=== PATIENT | female | born 1985 | race Hispanic/Latino ===

== ENCOUNTER 2018-06-30 10:25 | Emergency (ER) | payer OTHER ==
[2018-06-30 11:23] VITALS: BMI 33.3
[2018-06-30 11:40] LABS: SQUAMOUS EPITHIAL 17 /hpf (0-5); URINE BILIRUBIN NEGATIVE (NEGATIVE); URINE BLOOD NEGATIVE (NEGATIVE); URINE CLARITY CLOUDY (Clear); URINE COLOR YELLOW (YELLOW); URINE GLUCOSE (UA) NEG (NEGATIVE); URINE LEUKOCYTE ESTERASE NEG Leu/uL (Negative); URINE PROTEIN NEGATIVE (NEGATIVE); URINE UROBILINOGEN 0.2-1.0 mg/dL (0.2-1.0)
[2018-06-30 17:59] VITALS: BP 125/77; PULSE 75; RESP 18; TEMP 98.2; O2SAT 97
--- NOTE | 2018-07-01 08:16 | OBHP ---
Datetime: 06/30/2018 11:23 IP Adm Impression: , intrauterine IP Admit Plan: Observation/Evaluation Admit Comment, IP Provider: 32 YO with IUP at EGA 28.5 Wks by first trimester US EDC , who presents to [facility] with c/o middle back pain. Patient explains she has middle back pain that st arted several days ago, but since yesterday is more intense /, located more to the left side of t he back, feels like muscle soreness and sometimes like an "snap" on her back when she moves, cough or take deep breaths, patient states that the pain is preventing her from functioning in her daily acti vities at work and home, states nothing make it better and a heating pad and Tylenol did not relief t he pain. Patient also reports she just finished yesterday amoxicillin Rx x7d for bronchitis, she has been with cold like symptoms for x1MO, with a dry cough that now in the past week became productive o f a greenish sputum, she reports feeling better of her bronchitis, but reports difficulty taking deep breaths due to pain. Patient denies VB, CONTX, LOF, BROUSSARD, fever, chills, N/V/D, dysuria. Patient repor ts +FM. ROS: Unremarkable, except as per HPI. provider: Dr Luz COATS: x 2 previous full term , LEEP Sx in 2012, denies STI, reports normal current . PMH: Denies FMH: Denies SOCHx: Denies Tob/drugs/ ETOH SURG: Cholecystectomy ALL: NKA MEDS; Vit PE GEN: NAD HEENT: NCAT RESP: Decreased breath sound to left side, no wheezing, no rhonchi CV: RRR, S1 S2 present normal BACK: No R CVA tenderness, Left no done due to tenderness to palpation of left middle-upper back, tenderness located toward lower back rib cage. EXT: No edema A/P 32 YO with IUP at EGA 28.5 Wks by first trimester US EDC , with c/o upper-middle back pain that increases suddenly mostly with coughing and deep breathing, with recent h/o bronchitis , tender to palpation of back side of left rib cage. Negative for chills, fever, and dysuria. Impression: Pleuritic pain secondary to cough of recent bronchitis Will also rule out UTI in Plan -Maternal VS monitoring -FHR monitoring -UA -D/C planning Case discussed with attending Dr Luz Sandy MD PGY1 Comments, ACOG Physical Exam: see triage comments EGA AdmitDate IP: 28.5 Vital Signs Provider: Reviewed; Within Normal Limits (Annotations: Data stored by CPN on behalf of user) IP Chief Complaint: Illness
== END 2018-06-30 12:50 | disposition home or self-care (01) ==
LOC: H.EROB2 10:25
DX: O26.93 Pregnancy related conditions, unspecified, third trimester (principal); M54.6 Pain in thoracic spine; Z3A.28 28 weeks gestation of pregnancy; O09.93 Supervision of high risk pregnancy, unspecified, third trimester

== ENCOUNTER 2018-09-18 16:01 | Inpatient (IN) | payer OTHER ==
[2018-09-18 17:16] VITALS: BMI 34.7
[2018-09-18] MEDS ORDERED: Lactated Ringer's 1,000 ML IV ONE (17:16)
[2018-09-18 17:48] LABS: BASO % 0.2 % (0.0-2.0); EOS # 0.1 K/uL (0.0-0.7); EOS % 0.6 % (0.0-4.0); HEMOGLOBIN 11.5 g/dL (12.0-16.0); LYMPH # 1.7 K/uL (1.0-4.3); LYMPH % 16.7 % (20.0-40.0); MEAN CELL VOLUME 87.6 fl (81.0-99.0); MEAN CORPUSCULAR HEMOGLOBIN 29.1 pg (27.0-31.0); MEAN CORPUSCULAR HGB CONC 33.2 g/dL (33.0-37.0); MEAN PLATELET VOLUME 9.3 fl (7.2-11.7); MONO # 0.5 K/uL (0.0-0.8); MONO % 5.3 % (0.0-10.0); NEUT # 7.9 K/uL (1.8-7.0); NEUT % 77.2 % (50.0-75.0); NRBC % 0.1 % (0.0-0.0); RBC 3.96 Mil/uL (3.80-5.20); RED CELL DISTRIBUTION WIDTH 13.3 % (11.5-14.5); WHITE BLOOD COUNT 10.2 K/uL (4.8-10.8)
[2018-09-18] MEDS: Lactated Ringer's 1,000 ML IV SCH (18:00)
--- NOTE | 2018-09-18 20:34 | OBHP ---
Datetime: 09/18/2018 17:38 IP Adm Impression: Term, intrauterine ; No Active Labor; Intact Membranes IP Admit Plan: Admit to unit; Initiate labor induction protocol Admit Comment, IP Provider: 32 YO , 40.1 weeks with NATHANIEL of 09/17/18 presents to [facility] after a f all injury today. Patient reports this morning while getting out of her bed patient's leg were numb a nd weakness, resulted in a fall in a sitting down position. Patient reports back pain, tingling and n umbness of B/L upper and lower extremity. She endorses decreased FM since this morning. She also repo rts fear of frequent future falls she is unsure of triggering factors. Denies LOF, VB, CTx. Denies fe crow, chills, urinary symptoms, headache, dizziness, direct injury to abdomen or uterus. ROS: Unremarkable, except as per HPI. provider: Dr. Escobar, Last visit with Dr. Magana at 39 weeks, Last US per patient on 09/02 09/20 w/ EFW 8lb. OBGYN: x 2 previous full term , LEEP Sx in 2012, denies STI, reports normal current . PMH: Fibromyalgia FMH: Denies SOCHx: Denies Tob/drugs/ ETOH SURG: Cholecystectomy, LEEP Sx Allergies: NKDA MEDS: PNVs PE GEN: NAD HEENT: NCAT RESP: CTAB CV: RRR, S1 S2 present Abdomen: NT, gravid, BS + BACK: No CVA tenderness, + paraspinal tenderness. + sacrococcygeal tenderness. EXT: No edema, No calf tenderness SV; 2/40%/-3 A/P: 32 y/o , H/O fibromyalgia, , 40.1 weeks based on LMP with due date on 09/17/18 presents to [facility] after a fall injury. - [place] and EFM monitoring - CTx Q 4-5 mins on toco with category 1 Tracing, No decels - SVE: 2/40%/-3 - Considering the H/O recurrent fall, increase risk of fall, decreased movement, post date, fibromyalgia Hx, Will admit the patient for induction of labor. - CBC, T_S - LR 1L bolus and LR @ 125 ml/hr - Cytotec 25 mg Q4hr for IOL - Monitor cervical chanegs. Case discussed with Dr. Jonathan Sawant, PGY1 Addendum: patient was seen and evaluated with Resident and I agree with the above. Pelvic Type - PN: Not Done Extremities - PN: Normal Abdomen - PN: Normal Back - PN: Normal Breast - PN: Normal Lungs - PN: Normal Heart - PN: Normal Thyroid - PN: Not Done Neurologic - PN: Not Done HEENT - PN: Normal General - PN: Normal Presentation-Admit: Vertex FHR - Baseline A Provider: 120 Membranes, Provider: Intact Comments, ACOG Physical Exam: GEN: NAD HEENT: NCAT RESP: CTAB CV: RRR, S1 S2 present Abdomen: NT, gravid, BS + BACK: No CVA tenderness, + paraspinal tenderness. + sacrococcygeal tenderness. EXT: No edema, No calf tenderness SV; 2/40%/-3 Gestation - Est Wks by US: 40.1 IP Hx Assessment: The History has been Reviewed and is Current EGA AdmitDate IP: 40.1 Vital Signs Provider: Reviewed; Within Normal Limits IP Indication for Induction: Other IP Indication for Induction Oth: Post date, Decrease movement, trauma IP Chief Complaint: Decreased movement; Maternal discomfort; Trauma/Fall NICHD Variability Prov Fetus A: Moderate 6-25bpm NICHD Accel Fetus A IP Provider: 15X15 FHR Category Provider Fetus A: Category I NICHD Decel Fetus A IP Provider: None Dilatation, Provider: 2 Effacement, Provider: 40 Station, Provider: -3 Genitourinary Exam: Normal DTRs - PN: Not Done Datetime: 09/18/2018 17:21 Contraction Comments Provider: Regular
--- NOTE | 2018-09-18 20:38 | OBADHP ---
Datetime: 09/18/2018 17:38 Admit Comment, IP Provider: 32 YO , 40.1 weeks with NATHANIEL of 09/17/18 presents to [facility] after a f all injury today. Patient reports this morning while getting out of her bed patient's leg were numb a nd weakness, resulted in a fall in a sitting down position. Patient reports back pain, tingling and n umbness of B/L upper and lower extremity. She endorses decreased FM since this morning. She also repo rts fear of frequent future falls she is unsure of triggering factors. Denies LOF, VB, CTx. Denies fe crow, chills, urinary symptoms, headache, dizziness, direct injury to abdomen or uterus. ROS: Unremarkable, except as per HPI. provider: Dr. Escobar, Last visit with Dr. Magana at 39 weeks, Last US per patient on 09/02 09/20 w/ EFW 8lb. OBGYN: x 2 previous full term , LEEP Sx in 2012, denies STI, reports normal current . PMH: Fibromyalgia FMH: Denies SOCHx: Denies Tob/drugs/ ETOH SURG: Cholecystectomy, LEEP Sx Allergies: NKDA MEDS: PNVs PE GEN: NAD HEENT: NCAT RESP: CTAB CV: RRR, S1 S2 present Abdomen: NT, gravid, BS + BACK: No CVA tenderness, + paraspinal tenderness. + sacrococcygeal tenderness. EXT: No edema, No calf tenderness SV; 2/40%/-3 A/P: 32 y/o , H/O fibromyalgia, , 40.1 weeks based on LMP with due date on 09/17/18 presents to [facility] after a fall injury. - [place] and EFM monitoring - CTx Q 4-5 mins on toco with category 1 Tracing, No decels - SVE: 2/40%/-3 - Considering the H/O recurrent fall, increase risk of fall, decreased movement, post date, fibromyalgia Hx, Will admit the patient for induction of labor. - CBC, T_S - LR 1L bolus and LR @ 125 ml/hr - Cytotec 25 mg Q4hr for IOL - Monitor cervical chanegs. Case discussed with Dr. Jonathan Sawant, PGY1 Addendum: patient was seen and evaluated with Resident and I agree with the above. Pelvic Type - PN: Not Done Extremities - PN: Normal Abdomen - PN: Normal Back - PN: Normal Breast - PN: Normal Lungs - PN: Normal Heart - PN: Normal Thyroid - PN: Not Done Neurologic - PN: Not Done HEENT - PN: Normal General - PN: Normal Presentation-Admit: Vertex FHR - Baseline A Provider: 120 Membranes, Provider: Intact Comments, ACOG Physical Exam: GEN: NAD HEENT: NCAT RESP: CTAB CV: RRR, S1 S2 present Abdomen: NT, gravid, BS + BACK: No CVA tenderness, + paraspinal tenderness. + sacrococcygeal tenderness. EXT: No edema, No calf tenderness SV; 2/40%/-3 Gestation - Est Wks by US: 40.1 IP Hx Assessment: The History has been Reviewed and is Current Vital Signs Provider: Reviewed; Within Normal Limits IP Chief Complaint: Decreased movement; Maternal discomfort; Trauma/Fall NICHD Variability Prov Fetus A: Moderate 6-25bpm NICHD Accel Fetus A IP Provider: 15X15 FHR Category Provider Fetus A: Category I NICHD Decel Fetus A IP Provider: None Dilatation, Provider: 2 Effacement, Provider: 40 Station, Provider: -3 Genitourinary Exam: Normal DTRs - PN: Not Done EGA AdmitDate IP: 40.1 IP Adm Impression: Term, intrauterine ; No Active Labor; Intact Membranes IP Admit Plan: Admit to unit; Initiate labor induction protocol Datetime: 09/18/2018 17:21 Contraction Comments Provider: Regular
[2018-09-18] MEDS ORDERED: Alum-Mag Hydrox-Simethicone Susp (30 mL) PO PRN (20:39)
[2018-09-19] MEDS ORDERED: OXYTOCIN/0.9 % NS 20 UNIT/1,000 ML BAG IV SCH ×2 (00:30→01:30)
[2018-09-19] MEDS ORDERED: Oxytocin 30 UNIT in NS 500 ml 30 UNITS/500 ML BAG IV ONE (01:26)
[2018-09-19] MEDS ORDERED: Lactated Ringer's 1,000 ML IV SCH ×2 (02:45→03:00)
[2018-09-19] MEDS: Lactated Ringer's 1,000 ML IV SCH ×2 (03:05→09:00)
[2018-09-19] MEDS ORDERED: Fentanyl/Bupivacaine HCl 250 ML EPI ONE (03:22)
--- NOTE | 2018-09-19 07:27 | OBPN ---
Datetime: 09/19/2018 07:18 IP Progress Impression: Normal progression of labor; Reassuring heart rate IP Informed Consent Obtain: Vaginal Delivery IP Procedures: Artificial ROM; Sterile Vag Exam IP Progress Plan: Continue present management Membranes, Provider: Ruptured Amniotic Fluid Color, Provider: Clear Contraction Comments Provider: Q 2-4 FHR - Baseline A Provider: 130 Gestation - Est Wks by US: 40.2 Presentation-Admit: Vertex IP Progress Note Comment: Patient is s/p Epidural and reports feeling comfortable FHR- category 1 [place] Strip: Q 2-3 SVE: 3-4/70/-3, vertex, AROM Done- clear fluid Assessment: IUP at 40.2 weeks in labor Reassuring maternal status Plan: Continue monitoring the progress of labor. NICHD Accel Fetus A IP Provider: 15X15 FHR Category Provider Fetus A: Category I NICHD Variability Prov Fetus A: Moderate 6-25bpm Dilatation, Provider: 3-4 Effacement, Provider: 70 Station, Provider: -3 NICHD Decel Fetus A IP Provider: None
--- NOTE | 2018-09-19 09:47 | OBPN ---
Datetime: 09/19/2018 00:40 IP Progress Impression: Reassuring heart rate IP Procedures: Sterile Vag Exam IP Progress Plan: Continue present management Membranes, Provider: Intact Contraction Comments Provider: irregular FHR - Baseline A Provider: 140 Gestation - Est Wks by US: 40.2 Presentation-Admit: Vertex IP Progress Note Comment: Patient reports some mild pelvic cramps. Reports some mild headache. Denies dizziness O: afebrile Heart: RRR Chest: CTA B/L Abd: soft, NT, BS- present. FHR- Category 1 TOCO: Irregular SVE: 50/-3 Assessment: IUP at 40.2 weeks IOL for decreased Movements Reassuring Maternal status S/P Cytotec #2 for cervical ripening Plan: Continue monitoring the progress of labor. NICHD Accel Fetus A IP Provider: 15X15 FHR Category Provider Fetus A: Category I NICHD Variability Prov Fetus A: Moderate 6-25bpm Dilatation, Provider: 3 Effacement, Provider: 50 Station, Provider: -3 NICHD Decel Fetus A IP Provider: None Datetime: 09/18/2018 17:38 Vital Signs Provider: Reviewed; Within Normal Limits
[2018-09-19] MEDS ORDERED: Lidocaine 1% 20 MG/2 ML PF AMP ONE (15:38)
[2018-09-19] MEDS ORDERED: Benzocaine/Menthol SPRAY TOP PRN ×2 (16:00→19:38)
--- NOTE | 2018-09-19 16:04 | OBDS ---
MATERNAL INFORMATION Provider Comments: of live infant male (weight-[id number]) over intact perineum at 1530 with epidura l anesthesia. No nuchal cord. Apgars 9-9. Cord double clamped _ then cut by grandfather. Baby placed on mother for skin to skin. Spontaneous delivery of placenta with 3-vessel cord at 1535. 1% lidocaine injected into vagina for local anesthetic to 1st degree laceration. Laceration was repaired with 2-0 rapide. EBL is 300cc. Mother and baby are both doing well. -ABUNDIO Bernal JP, PGY-1 I was present for this delivery. (ES) LABOR SUMMARY [facility]: 09/17/2018 00:00 No. Babies in Womb: 1 Attempted: No LABOR INFORMATION Reason for Induction: Postterm Cervical Ripening Agents: Cytotec @ 25 mcg Group B Beta Strep: Negative MEMBRANES Membranes Rupture Method: Artificial Amniotic Fluid Color: Clear Amniotic Fluid Amount: Moderate Amniotic Fluid Odor: Normal BABY A INFORMATION Born in Route : No : N/A IDENTIFICATION/MEDS BABY A ID Band Number: [id number] ID Band Location: Left Leg; Left Arm
[2018-09-19] MEDS ORDERED: Alum-Mag Hydrox-Simethicone Susp (30 mL) PO PRN (19:38)
[2018-09-20 06:45] LABS: BASO % 0.1 % (0.0-2.0); EOS # 0.1 K/uL (0.0-0.7); EOS % 0.7 % (0.0-4.0); HEMOGLOBIN 10.4 g/dL (12.0-16.0); LYMPH # 1.8 K/uL (1.0-4.3); LYMPH % 17.2 % (20.0-40.0); MEAN CORPUSCULAR HEMOGLOBIN 29.6 pg (27.0-31.0); MEAN CORPUSCULAR HGB CONC 33.6 g/dL (33.0-37.0); MEAN PLATELET VOLUME 9.8 fl (7.2-11.7); MONO # 0.6 K/uL (0.0-0.8); MONO % 5.2 % (0.0-10.0); NEUT # 8.2 K/uL (1.8-7.0); NEUT % 76.8 % (50.0-75.0); NRBC % 0.1 % (0.0-0.0); RBC 3.52 Mil/uL (3.80-5.20); RED CELL DISTRIBUTION WIDTH 13.1 % (11.5-14.5); WHITE BLOOD COUNT 10.7 K/uL (4.8-10.8)
[2018-09-20] MEDS ORDERED: Multivitamin With Minerals Tab PO SCH (09:00)
[2018-09-20] MEDS: Multivitamin With Minerals Tab PO SCH (10:35)
[2018-09-21] MEDS: Multivitamin With Minerals Tab PO SCH (09:09)
[2018-09-21] MEDS ORDERED: Measles, Mumps, and Rubella 0.5 ML VIAL SC ONE (13:00)
--- NOTE | 2018-09-21 17:25 | OBDCSUM ---
Datetime: 09/21/2018 14:31 Discharged to, Provider: Home Follow up at, Provider: Your WATCH REPAIR PERSON Disch Instr Activity: Normal activity Disch Instr Diet: Regular Discharge Instructions, Provider: Routine instructions given Discharge Diagnosis, Provider: Term Delivered Discharge Time: 09/21/2018 16:00 Follow up in weeks, Provider: 4-6 Weeks Disch Referrals: None Contraception discussed, Prov: Yes Disch Activity Restrictions: No sexual activity; Nothing in vagina - [place], tampons, douche Discharge Comment, Provider: S/P Uncomplicated vaginal delivery Discharge Diagnosis Prov Other: S/P Uncomplicated vaginal delivery
--- NOTE | 2018-09-21 17:25 | OBPPN ---
Datetime: 09/21/2018 17:22 PP Comments Phys Exam Prov: Abd: Soft, NT, BS- present UT- firm and well contracted PP Impression Prov: Normal progression PP Plan Prov: Discharge PP Progress Note Prov: S/p , PPD#2 Clinically Stable. Plan; D/C Home Follow up with Dr Escobar in 6 weeks.
[2018-09-21 20:23] VITALS: BP 122/76; PULSE 73; RESP 20; TEMP 98.1; O2SAT 99
== END 2018-09-21 16:00 | disposition home or self-care (01) | DRG 373 ==
LOC: H.EROB2 16:01 → H.L&D 17:16 → H.OB/GYN 09-19 20:16
PROVIDERS: ADMIT Obstetrics & Gynecology; ATTEND Obstetrics & Gynecology
PROC: 10E0XZZ Delivery of Products of Conception, External Approach (ICD-10-PCS; principal; 2018-09-19)
PROC: 0HQ9XZZ Repair Perineum Skin, External Approach (ICD-10-PCS; 2018-09-19)
PROC: 10907ZC Drainage of Amniotic Fluid, Therapeutic from Products of Conception, Via Natural or Artificial Opening (ICD-10-PCS; 2018-09-19)
DX: O48.0 Post-term pregnancy (principal); O36.8130 Decreased fetal movements, third trimester, not applicable or unspecified; O70.0 First degree perineal laceration during delivery; Z3A.40 40 weeks gestation of pregnancy; Z37.0 Single live birth; M79.7 Fibromyalgia